=== PATIENT | male | born 2000 | race Caucasian/White ===

== ENCOUNTER 2022-04-29 12:21 | Outpatient (CLI) | payer OTHER, SELFPAY | END 2022-04-29 12:22 | disposition home or self-care (01) | PROVIDERS: Visit Provider Registered Nurse | DX: L08.9 Local infection of the skin and subcutaneous tissue, unspecified (principal); T14.8XXA Other injury of unspecified body region, initial encounter | CPT/HCPCS: 87186; 87205 ==